=== PATIENT | female | born 1950 | race Caucasian/White ===

== ENCOUNTER → 2016-12-12 | Outpatient (CLI) | payer MEDICARE ==
[~2016-12-12] MED LIST: BIOT25004 PO; CALC-192 PO; CHOL10003 PO; GLUC-121 PO; LACT1CAP35 PO; LECI1200 PO; LEVO150T5 PO; MAGN100T PO; OMEG1CAP34 PO; RED600TA PO; UBID60CA2 PO; VIT1CAPS6 PO; VITA400C40 PO; ZINC25CA PO; [UNRECOGNIZED DRUG - OTHER] PO
== END | disposition home or self-care (01) ==
LOC: CFH 10:33
PROVIDERS: ATTEND Family Medicine
DX: Z13.820 Encounter for screening for osteoporosis (principal); N95.9 Unspecified menopausal and perimenopausal disorder
CPT/HCPCS: 77080

== ENCOUNTER → 2017-05-20 | Outpatient (CLI) | payer MEDICARE ==
[~2017-05-20] MED LIST changes: -BIOT25004 PO; +BIOT25005 PO; -VITA400C40 PO; +VITA400C43 PO
== END | disposition home or self-care (01) ==
LOC: CFH 10:51
PROVIDERS: ATTEND Family Medicine
DX: Z12.31 Encounter for screening mammogram for malignant neoplasm of breast (principal); Z85.3 Personal history of malignant neoplasm of breast
CPT/HCPCS: 77063; G0202

== ENCOUNTER → 2018-05-26 | Outpatient (CLI) | payer MEDICARE | END | disposition home or self-care (01) | LOC: CFH 10:32 | PROVIDERS: ATTEND Internal Medicine | DX: Z12.31 Encounter for screening mammogram for malignant neoplasm of breast (principal); Z13.820 Encounter for screening for osteoporosis; Z78.0 Asymptomatic menopausal state; Z85.3 Personal history of malignant neoplasm of breast | CPT/HCPCS: 77080; 77067 ==

== ENCOUNTER → 2019-05-28 | Outpatient (CLI) | payer MEDICARE | END | disposition home or self-care (01) | LOC: CFH 09:19 | PROVIDERS: ATTEND Family Medicine | DX: Z12.31 Encounter for screening mammogram for malignant neoplasm of breast (principal); Z85.3 Personal history of malignant neoplasm of breast | CPT/HCPCS: 77063; 77067 ==

== ENCOUNTER → 2020-05-17 | Outpatient (CLI) | payer MEDICARE ==
[~2020-05-17] MED LIST changes: -UBID60CA2 PO; +UBID60CA4 PO
== END | disposition home or self-care (01) ==
LOC: CFH 12:14
PROVIDERS: ATTEND Family Medicine
DX: C50.919 Malignant neoplasm of unspecified site of unspecified female breast (principal)
CPT/HCPCS: 76642; 77066; G0279